=== PATIENT | male | born 1945 | race Asian ===

== ENCOUNTER 2017-07-15 03:23 | Emergency (ER) | payer OTHER ==
[2017-07-15 04:00] LABS: ADD MAN DIFF? NO
[2017-07-15 04:16] LABS: BASOPHILS % 0.2 % (0.0-2.0); EOSINOPHILS # 0.3 10^3/ul (0.0-0.5); EOSINOPHILS % 3.1 % (0.0-7.0); HEMATOCRIT 40.5 % (42.0-52.0); HEMOGLOBIN 13.5 g/dl (14.0-18.0); LYMPHOCYTES # 0.9 10^3/ul (0.8-2.9); LYMPHOCYTES % 10.5 % (15.0-51.0); MEAN CORPUSCULAR HEMOGLOBIN 29.4 pg (29.0-33.0); MEAN CORPUSCULAR HGB CONC 33.3 g/dl (32.0-37.0); MEAN CORPUSCULAR VOLUME 88.2 fl (82.0-101.0); MONOCYTE # 0.7 10^3/ul (0.3-0.9); MONOCYTES % 7.4 % (0.0-11.0); NEUTROPHILS % 78.5 % (39.0-77.0); PLATELET COUNT 154 10^3/UL (140-415); RED BLOOD COUNT 4.59 10^6/ul (4.70-6.10); RED CELL DISTRIBUTION WIDTH 13.6 % (11.5-14.5)
[2017-07-15 04:16] LABS: WHITE BLOOD COUNT 8.9 10^3/ul (4.8-10.8)
[2017-07-15 04:19] LABS: INR 0.96; PROTIME 12.9 Sec (11.9-14.9)
[2017-07-15 04:20] LABS: PARTIAL THROMBOPLASTIN TIME 35.2 Sec (25.0-35.0)
[2017-07-15 04:22] LABS: LACTIC ACID 0.8 mmol/L (0.5-2.0)
[2017-07-15] MEDS: IBUPROFEN 600 MG TAB PO (04:23)
[2017-07-15 04:24] LABS: ALANINE AMINOTRANSFERASE 53 IU/L (13-69); ALBUMIN 3.5 g/dl (3.3-4.9); ALBUMIN/GLOBULIN RATIO 1.09; ALKALINE PHOSPHATASE 86 IU/L (42-121); ANION GAP 11 (8-16); ASPARTATE AMINO TRANSFERASE 62 IU/L (15-46); BILIRUBIN,INDIRECT 0.4 mg/dl (0-1.1); BILIRUBIN,TOTAL 0.4 mg/dl (0.2-1.3); BLOOD UREA NITROGEN 16 mg/dl (7-20); CALCIUM 9.3 mg/dl (8.4-10.2); CARBON DIOXIDE 30 mmol/L (21-31); CHLORIDE 101 mmol/L (97-110); CREATININE 0.94 mg/dl (0.61-1.24); GLUCOSE 135 mg/dl (70-220); LIPASE 53 U/L (23-300); POTASSIUM 4.1 mmol/L (3.5-5.1); SODIUM 138 mmol/L (135-144); TOTAL PROTEIN 6.7 g/dl (6.1-8.1)
[2017-07-15] MEDS: CEFEPIME 1GM/50 ML (PMX) 50 ML IVPB (04:24)
[2017-07-15] MEDS: SODIUM CHLORIDE 0.9% 1L BAG IV* (04:24)
[2017-07-15] MEDS: LACTATED RINGER'S 1,000 ML IV (04:24)
[2017-07-15 04:28] LABS: ADD UMIC NO; UR ASCORBIC ACID NEGATIVE (NEGATIVE); UR BILIRUBIN (Dip) NEGATIVE (NEGATIVE); UR BLOOD (Dip) NEGATIVE (NEGATIVE); UR CLARITY CLEAR (CLEAR); UR COLOR STRAW (YELLOW); UR GLUCOSE (Dip) NEGATIVE (NEGATIVE); UR KETONES (Dip) TRACE mg/dL (NEGATIVE); UR LEUKOCYTE ESTERASE (Dip) NEGATIVE Leu/ul (NEGATIVE); UR NITRITE (Dip) NEGATIVE (NEGATIVE); UR SPECIFIC GRAVITY (Dip) 1.009 (1.003-1.030); UR TOTAL PROTEIN (Dip) NEGATIVE (NEGATIVE); UR UROBILINOGEN (Dip) NEGATIVE (NEGATIVE)
[2017-07-15 04:35] LABS: TROPONIN-I 0.018 ng/ml (0.000-0.120)
[2017-07-15] MEDS: SOD CHLORIDE 0.9% 100 ML (05:24)
[2017-07-15] MEDS: IOHEXOL 300MG/ML 150 ML BTL (05:24)
[2017-07-15 05:58] LABS: LACTIC ACID 0.8 mmol/L (0.5-2.0)
[2017-07-15 08:12] LABS: LACTIC ACID 0.8 mmol/L (0.5-2.0)
== END 2017-07-15 08:10 | disposition short-term general hospital (02) ==
LOC: E/R 03:23
DX: R00.2 Palpitations (principal); R50.9 Fever, unspecified; J95.89 Other postprocedural complications and disorders of respiratory system, not elsewhere classified; J18.9 Pneumonia, unspecified organism; R07.9 Chest pain, unspecified
CPT/HCPCS: 36415; 71045; 71275; 80053; 81003; 83605; 83690; 84484; 85025; 85610; 85730; 87040; 87086; 87400; 93005; 96365; 99291-25